=== PATIENT | male | born 1970 | race Caucasian/White ===

== ENCOUNTER 2018-04-20 16:58 | Emergency (ER) | payer OTHER ==
[~2018-04-20] VITALS: Ht 162.6 cm; Wt 80.3 kg
[2018-04-20 17:18] VITALS: Ht 162.6 cm; Wt 80.3 kg
[2018-04-20 19:25] VITALS: BP 140/94
== END 2018-04-20 19:25 | disposition home or self-care (01) ==
LOC: ED 16:58
DX: S61.215A Laceration without foreign body of left ring finger without damage to nail, initial encounter (principal); X58.XXXA Exposure to other specified factors, initial encounter; Y93.89 Activity, other specified; Y92.89 Other specified places as the place of occurrence of the external cause; Y99.8 Other external cause status
CPT/HCPCS: 90715; J2001

== ENCOUNTER 2018-04-22 16:36 | Emergency (ER) | payer OTHER ==
[~2018-04-22] VITALS: Ht 162.6 cm; Wt 80.7 kg
[2018-04-22 16:40] VITALS: Ht 162.6 cm; Wt 80.7 kg
[2018-04-22 19:20] VITALS: BP 118/86
== END 2018-04-22 19:20 | disposition home or self-care (01) ==
LOC: ED 16:36
DX: S61.215D Laceration without foreign body of left ring finger without damage to nail, subsequent encounter (principal); W45.8XXD Other foreign body or object entering through skin, subsequent encounter

== ENCOUNTER 2018-04-25 12:41 | Emergency (ER) | payer OTHER ==
[~2018-04-25] VITALS: Ht 162.6 cm; Wt 80.7 kg
[2018-04-25 12:44] VITALS: BP 139/93; Ht 162.6 cm; Wt 80.7 kg
== END 2018-04-25 13:38 | disposition home or self-care (01) ==
LOC: ED 12:41
DX: S61.215D Laceration without foreign body of left ring finger without damage to nail, subsequent encounter (principal); W45.8XXD Other foreign body or object entering through skin, subsequent encounter

== ENCOUNTER 2018-04-30 12:29 | Emergency (ER) | payer OTHER ==
[~2018-04-30] VITALS: Ht 162.6 cm; Wt 80.7 kg
[2018-04-30 13:12] VITALS: Ht 162.6 cm; Wt 80.7 kg
[2018-04-30 13:30] VITALS: BP 127/48
== END 2018-04-30 13:30 | disposition home or self-care (01) ==
LOC: ED 12:29
DX: S61.215D Laceration without foreign body of left ring finger without damage to nail, subsequent encounter (principal); X58.XXXD Exposure to other specified factors, subsequent encounter